=== PATIENT | female | born 1965 | race Caucasian/White ===

== ENCOUNTER 2017-04-24 18:31 | Emergency (ER) | END 2017-04-24 19:53 | disposition home or self-care (01) ==

== ENCOUNTER 2018-03-31 22:05 | Emergency (ER) | payer SELFPAY ==
[~2018-03-31] VITALS: Ht 162.6 cm; Wt 92.0 kg
[~2018-03-31 22:05] MED LIST: HYDR-3980 PO; SLSL1C50 TOP
[2018-03-31 22:21] VITALS: BP 123/70; PULSE 76; RESP 18; Ht 162.6 cm; Wt 92.0 kg
--- NOTE | 2018-04-01 02:09 | QN ---
Documentation Comment I spoke with Dr. Mishra [facility] who has accepted the patient in transfer for higher level of care as we do not have ophthalmology here at [facility]. BETTIE STONE MD Apr 01, 2018 02:09
--- NOTE | 2018-04-01 03:01 | ERD ---
ER Documentation Chief Complaint Chief Complaint R sided JOYNER w/vision of spots in her R eye x 4 days HPI 52-year-old female presenting with intermittent headache with right-sided vision changes over the last 3-4 days. Patient denies any contacts or glasses use. She states she has some blurred vision. The headache comes and goes but has now resolved. She has not taken medications. She states that she feels some dark lines over her eyes with abnormal vision changes. Denies other medical problems. NKDA. Surgical history denies. Social history denies ROS All systems reviewed and are negative except as per history of present illness. Medications Home Meds Active Scripts Silver Sulfadiazine* (Thermazene*) 1%-50 gm Cream..g., 1 APPLIC TOP BID, #1 JAR Prov:DORIAN LYLES DO 04/24/17 Hydrocodone/Acetaminophen (Pioneer 10-325 Tablet) 1 Each Tablet, 1 TAB PO Q6H PRN for PAIN, #20 TAB Prov:DORIAN LYLES DO 04/24/17 Allergies Allergies: Coded Allergies: No Known Allergy (Unverified , 04/24/17) PMhx/Soc Medical and Surgical Hx: pt denies Medical Hx, pt denies Surgical Hx History of Surgery: No Anesthesia Reaction: No Hx Neurological Disorder: No Hx Respiratory Disorders: No Hx Cardiac Disorders: No Hx Psychiatric Problems: No Hx Miscellaneous Medical Probl: No Hx Alcohol Use: Yes (Socially) Hx Substance Use: No Hx Tobacco Use: No Smoking Status: Never smoker FmHx Family History: No diabetes, No coronary disease, No other Physical Exam Vitals Vital Signs Date Temp Pulse Resp B/P (MAP) Pulse Ox O2 O2 Flow FiO2 Time Delivery Rate 03/31/18 98.6 76 18 123/70 99 22:21 (87) Physical Exam GENERAL: The patient is well-appearing, well-nourished, in no acute distress HEENT: Atraumatic. Conjunctivae are pink. Pupils equal, round, and reactive to light. There is no scleral icterus. Tympanic membranes clear bilaterally. Oropharynx clear. No nystagmus or photophobia. CHEST: Clear to auscultation bilaterally. There are no rales, wheezes or rhonchi. HEART: Regular rate and rhythm. No murmurs, clicks, rubs or gallops. No S3 or S4. NEUROLOGIC: Alert and oriented. Cranial nerves II through XII intact. Motor strength in all 4 extremities with 5 out of 5 strength. Sensation grossly intact. Normal speech and gait. Procedures/MDM DIAGNOSTIC IMAGING REPORT Patient: ANTONIO MEJIA : 1965 Age: 52 Sex: F MR #: [id number] DOS: 03/31/18 5113 Ordering MD: HEAVENLY PURCELL PA-C Location: E Room/Bed: PROCEDURE: Ultrasound globe CLINICAL INDICATION: Bilateral visual disturbance. TECHNIQUE: Real time sonographic imaging of the bilateral globes is performed and a total of 20 static images are submitted to the PACS for review COMPARISON: None available FINDINGS: Right eye:The globe is normal in morphology. There lens is normal in location without evidence of detachment. Echogenic material within the posterior chamber is most concerning for vitreous hemorrhage.. Linear echogenic foci within the posterior chamber have an inverted "V" appearance and raise concern for retinal detachment. The retrobulbar soft tissues are unremarkable. Left eye:The globe is normal in morphology. There lens is normal in location without evidence of detachment. Echogenic material within the posterior chamber is most concerning for vitreous hemorrhage. The retina is unremarkable without evidence of detachment. The retrobulbar soft tissues are unremarkable. RPTAT:HJJR IMPRESSION: 1. Echogenic material and abnormality involving the posterior chamber of the right globe most concerning for a combination of vitreous hemorrhage and retinal detachment. Follow-up evaluation is recommended. 2. Vitreous hemorrhage within the posterior chamber of the left eye without evidence of retinal detachment. 3. Results discussed by telephone with the patient's emergency room Health Care provider, Heavenly Purcell, at 12:51 a.m. ER Course: Transfer to [facility] was set in motion for patient and patient was awaiting transfer when patient decided she wanted to sign AMA and leave the [facility]. I explained to patient repetitively that she was at high risk of losing vision if she left the ER and patient complied and understood her decision. Patient states she no longer wanted to wait in the ER and will find medical help after discharge. This case was discussed with Dr. Zaragoza who help facilitate transfer. Patient signed AMA and was not transferred to outside medical facility. MDM: 52-year-old female presenting with blurry vision. Patient had findings consistent with retinal detachment on ultrasound. Patient declined transfer and signed out AMA from the hospital. I have low suspicion for intracranial hemorrhage or neuro deficit. Patient understood the risks of signing out AMA and that she could potentially lose vision. All questions answered at the time of departure. Departure Diagnosis: Ruled Out: Left against medical advice RICKI PURCELL PA-C Apr 01, 2018 03:01
== END 2018-04-01 03:19 | disposition left against medical advice (07) ==
LOC: FTE 22:05
DX: H53.8 Other visual disturbances (principal)
CPT/HCPCS: 76536